=== PATIENT | female | born 2000 | race Two or more races ===

== ENCOUNTER 2022-02-02 20:18 | Emergency (ER) | payer MEDICAID, OTHER ==
[~2022-02-02] VITALS: Ht 157.5 cm; Wt 102.5 kg
[2022-02-02 23:34] LABS: Basophils # (auto) 0.4 10 ^3/uL (0-0.2); Basophils % (auto) 3.1 % (0.0-2.0); Eosinophils # (auto) 0.3 10 ^3/uL (0-0.8); Eosinophils % (auto) 2.6 % (0.0-7.0); Hematocrit 38.4 % (36.0-46.0); Hemoglobin 12.7 g/dL (12.2-16.2); Lymphocytes # (auto) 1.5 10 ^3/uL (0.4-5.4); Lymphocytes % (auto) 11.2 % (10.0-50.0); Mean Corpuscular Hemoglobin 27.2 pg (28.0-32.0); Mean Corpuscular Hgb Conc. 33.1 g/dL (32.0-36.0); Mean Corpuscular Volume 82.2 fL (80.0-100.0); Monocytes # (auto) 0.5 10 ^3/uL (0-1.3); Monocytes % (auto) 3.9 % (0.0-12.0); Neutrophils # (auto) 10.4 10 ^3/uL (1.6-8.6); Neutrophils % (auto) 79.2 % (37.0-80.0); Nucleated Red Blood Cells % 0.1 %; Red Blood Cells 4.67 10^6/uL (4.0-5.20); Red Cell Distribution Width 16.6 % (11.8-14.3); White Blood Cell 13.1 10^3/uL (4.4-10.8)
[2022-02-02 23:51] LABS: Albumin 3.8 g/dL (3.4-5.0); BUN/Creatinine Ratio 20.6; Calcium 8.6 mg/dL (8.5-10.1); Potassium 4.4 mmol/L (3.5-5.1)
[2022-02-02 23:57] LABS: Bilirubin, Total 0.5 mg/dL (0.2-1.0); Total Protein 7.9 g/dL (6.4-8.2)
[2022-02-03 03:00] LABS: Urine WBC None Seen /hpf (0 - 5)
[2022-02-03 04:01] LABS: Urine Amorphous Crystal MANY /hpf (None Seen); Urine Bacteria NONE SEEN /hpf (None Seen); Urine Blood Negative /uL (Negative); Urine Mucus FEW (None Seen); Urine Specific Gravity 1.031 (1.001-1.035)
[2022-02-03] MEDS ORDERED: SODIUM CHLORIDE 0.9% 1,000 ML IV ONE (07:45)
[2022-02-03] MEDS ORDERED: KETOROLAC TROMETH 30 MG/ML 1ML VIAL IV ONE (08:15)
[2022-02-03] MEDS ORDERED: LORazepam 0.5 MG TAB PO ONE (08:30)
[2022-02-03 12:38] VITALS: BP 111/76
== END 2022-02-03 12:49 | disposition home or self-care (01) ==
LOC: ER 20:27
DX: K82.9 Disease of gallbladder, unspecified (principal)
CPT/HCPCS: 36415; 74176; 80053; 81001; 81025; 82150; 83690; 85025; 96361; 96374; 99285; J1885; J7030